=== PATIENT | male | born 1990 | race Caucasian/White ===

== ENCOUNTER 2022-02-19 23:06 | Emergency (ER) | payer SELFPAY ==
[~2022-02-19] VITALS: Ht 182.9 cm; Wt 127.0 kg
[2022-02-20] MEDS ORDERED: NAPROSYN500 MG PO (01:19)
== END 2022-02-20 01:50 | disposition home or self-care (01) ==
LOC: ER 23:33
DX: M79.671 Pain in right foot (principal); M79.674 Pain in right toe(s); Y93.01 Activity, walking, marching and hiking
CPT/HCPCS: 99283